=== PATIENT | male | born 1950 | race Caucasian/White ===

== ENCOUNTER 2017-03-21 04:33 | Inpatient (IN) | payer OTHER ==
[2017-03-21 05:24] LABS: ADD MAN DIFF? NO
[2017-03-21 05:31] LABS: BASOPHIL # 0.1 10^3/ul (0.0-0.1); BASOPHILS % 0.6 % (0.0-2.0); EOSINOPHILS # 0.1 10^3/ul (0.0-0.5); EOSINOPHILS % 1.8 % (0.0-7.0); HEMATOCRIT 36.8 % (42.0-52.0); HEMOGLOBIN 11.9 g/dl (14.0-18.0); LYMPHOCYTES # 1.4 10^3/ul (0.8-2.9); LYMPHOCYTES % 17.6 % (15.0-51.0); MEAN CORPUSCULAR HEMOGLOBIN 26.4 pg (29.0-33.0); MEAN CORPUSCULAR HGB CONC 32.3 g/dl (32.0-37.0); MEAN CORPUSCULAR VOLUME 81.6 fl (82.0-101.0); MEAN PLATELET VOLUME 9.8 fl (7.4-10.4); MONOCYTE # 0.5 10^3/ul (0.3-0.9); MONOCYTES % 6.2 % (0.0-11.0); NEUTROPHIL # 5.7 10^3/ul (1.6-7.5); NEUTROPHILS % 73.4 % (39.0-77.0); NUCLEATED RED BLOOD CELLS% 0.4 /100WBC (0.0-0.0); PLATELET COUNT 289 10^3/UL (140-415); RED BLOOD COUNT 4.51 10^6/ul (4.70-6.10); RED CELL DISTRIBUTION WIDTH 17.3 % (11.5-14.5)
[2017-03-21 05:31] LABS: WHITE BLOOD COUNT 7.7 10^3/ul (4.8-10.8)
[2017-03-21 05:57] LABS: ANION GAP 13 (8-16); BLOOD UREA NITROGEN 28 mg/dl (7-20); CARBON DIOXIDE 24 mmol/L (21-31); CHLORIDE 107 mmol/L (97-110); CREATININE 0.89 mg/dl (0.61-1.24); GLUCOSE 120 mg/dl (70-220); POTASSIUM 4.3 mmol/L (3.5-5.1); SODIUM 140 mmol/L (135-144)
[2017-03-21 06:05] LABS: B-TYPE NATRIURETIC PEPTIDE 7920 PG/ML (0-125)
[2017-03-21 06:10] LABS: TROPONIN-I < 0.012 ng/ml (0.00-0.12)
[2017-03-21] MEDS ORDERED: ONDANSETRON 4 MG INJ IV ×2 (07:00→08:30)
[2017-03-21] MEDS ORDERED: ACETAMINOPHEN 325 MG TAB PO (07:00)
[2017-03-21] MEDS: FUROSEMIDE 40 MG INJ IV (07:40)
[2017-03-21] MEDS ORDERED: MAGNESIUM HYDROXIDE 30ML CUP PO (08:30)
[2017-03-21] MEDS ORDERED: HYDROCODONE/APAP (5/325) TAB PO (08:30)
[2017-03-21] MEDS ORDERED: POTASSIUM CHLORIDE 20 MEQ POWDER FOR ORAL SOLN PO ×3 (08:30)
[2017-03-21] MEDS ORDERED: LORAZEPAM 0.5 MG TAB PO (08:30)
[2017-03-21] MEDS ORDERED: NA PHOSPHATE/BIPHOS 133 ML ENEMA PR (08:30)
[2017-03-21] MEDS ORDERED: ZOLPIDEM 5 MG TAB PO (08:30)
[2017-03-21] MEDS ORDERED: DOCUSATE SODIUM 100 MG CAP PO (08:30)
[2017-03-21] MEDS ORDERED: NACL 0.9% 3 ML SYG IV (08:30)
[2017-03-21 10:07] LABS: CREATINE KINASE 35 IU/L (23-200)
[2017-03-21 10:16] LABS: B-TYPE NATRIURETIC PEPTIDE 9260 PG/ML (0-125)
[2017-03-21 10:18] LABS: CK INDEX 6.7
[2017-03-21 10:19] LABS: TROPONIN-I < 0.012 ng/ml (0.00-0.12)
[2017-03-21 10:20] LABS: CK-MB 2.33 ng/ml (0.0-2.4)
[2017-03-21 11:05] LABS: ADD UMIC NO; UR ASCORBIC ACID NEGATIVE (NEGATIVE); UR BILIRUBIN (Dip) NEGATIVE (NEGATIVE); UR BLOOD (Dip) NEGATIVE (NEGATIVE); UR CLARITY CLEAR (CLEAR); UR COLOR COLORLESS (YELLOW); UR GLUCOSE (Dip) NEGATIVE (NEGATIVE); UR KETONES (Dip) NEGATIVE (NEGATIVE); UR LEUKOCYTE ESTERASE (Dip) NEGATIVE Leu/ul (NEGATIVE); UR NITRITE (Dip) NEGATIVE (NEGATIVE); UR SPECIFIC GRAVITY (Dip) 1.005 (1.003-1.030); UR TOTAL PROTEIN (Dip) NEGATIVE (NEGATIVE); UR UROBILINOGEN (Dip) NEGATIVE (NEGATIVE)
[2017-03-21 11:27] LABS: DIGOXIN 0.4 ng/ml (1.0-2.0)
[2017-03-21 11:41] LABS: AMPHETAMINE/METHAMPHETAMINE Negative (NEGATIVE); BARBITURATES Negative (NEGATIVE); BENZODIAZEPINES Negative (NEGATIVE); CANNABINOIDS Negative (NEGATIVE); COCAINE Negative (NEGATIVE); OPIATES Negative (NEGATIVE)
[2017-03-21] MEDS: FAMOTIDINE 20 MG TAB PO ×2 (11:41→21:26)
[2017-03-21] MEDS: FERROUS SULFATE (EC) 325 MG TAB PO (11:41)
[2017-03-21] MEDS: PANTOPRAZOLE (EC) 40 MG TAB PO (11:41)
[2017-03-21] MEDS: ENOXAPARIN 40 MG/0.4 ML SYG SC (11:43)
[2017-03-21 12:39] LABS: GAMMA GLUTAMYL TRANSPEPTIDASE 21 IU/L (0-50)
[2017-03-21] MEDS: SPIRONOLACTONE 25 MG TAB PO (13:47)
[2017-03-21] MEDS: DIGOXIN 0.125 MG TAB PO (13:48)
[2017-03-21] MEDS: SERTRALINE 50 MG TAB PO (13:48)
[2017-03-21] MEDS: ASPIRIN (EC) 325 MG TAB PO (13:48)
[2017-03-21] MEDS: FINASTERIDE 5 MG TAB PO (13:48)
[2017-03-21] MEDS: NICOTINE (21 MG/24 HR) PATCH TRANSDERM (13:49)
[2017-03-21] MEDS: VALSARTAN 80 MG TAB PO (13:50)
[2017-03-21] MEDS: ASCORBIC ACID 500 MG TAB PO (13:50)
[2017-03-21] MEDS: LEVALBUTEROL (NEB) 0.63 MG/3 ML AMP HHN ×2 (14:03→23:34)
[2017-03-21 14:43] LABS: CREATINE KINASE 33 IU/L (23-200)
[2017-03-21 14:55] LABS: CK INDEX 6.8
[2017-03-21 14:59] LABS: CK-MB 2.24 ng/ml (0.0-2.4); TROPONIN-I < 0.012 ng/ml (0.00-0.12)
[2017-03-21] MEDS: POTASSIUM CHLORIDE (SR) 20 MEQ TAB PO ×2 (15:00→21:27)
[2017-03-21] MEDS: SALMETEROL/FLUTICASONE 250/50 INHA INH ×2 (15:00→23:00)
[2017-03-21] MEDS: CLOPIDOGREL 75 MG TAB PO (15:00)
[2017-03-21] MEDS: DIGOXIN 500 MCG INJ IV (15:01)
[2017-03-21] MEDS: TIOTROPIUM 18 MCG CAPSULE INHA DEV INH (16:18)
[2017-03-21] MEDS: BUMETANIDE 1 MG INJ IV ×2 (16:18→21:27)
[2017-03-21] MEDS: HYDROCODONE/APAP (5/325) TAB PO ×2 (16:31→22:41)
[2017-03-21] MEDS: ATORVASTATIN 80 MG TAB PO (21:26)
[2017-03-21] MEDS: TAMSULOSIN (SR) 0.4 MG CAP PO (21:26)
[2017-03-22] MEDS: morphine 2 MG INJ IV (03:12)
[2017-03-22] MEDS: HYDROCODONE/APAP (5/325) TAB PO (06:25)
[2017-03-22] MEDS: BUMETANIDE 1 MG INJ IV (06:27)
[2017-03-22 09:12] LABS: ADD MAN DIFF? NO; BASOPHIL # 0.1 10^3/ul (0.0-0.1); BASOPHILS % 0.4 % (0.0-2.0); EOSINOPHILS # 0.2 10^3/ul (0.0-0.5); EOSINOPHILS % 1.8 % (0.0-7.0); HEMATOCRIT 45.4 % (42.0-52.0); HEMOGLOBIN 14.5 g/dl (14.0-18.0); LYMPHOCYTES # 1.8 10^3/ul (0.8-2.9); MEAN CORPUSCULAR HEMOGLOBIN 25.7 pg (29.0-33.0); MEAN CORPUSCULAR HGB CONC 31.9 g/dl (32.0-37.0); MEAN CORPUSCULAR VOLUME 80.5 fl (82.0-101.0); MEAN PLATELET VOLUME 9.3 fl (7.4-10.4); MONOCYTE # 0.7 10^3/ul (0.3-0.9); MONOCYTES % 6.3 % (0.0-11.0); NEUTROPHIL # 8.4 10^3/ul (1.6-7.5); NEUTROPHILS % 75.2 % (39.0-77.0); PLATELET COUNT 393 10^3/UL (140-415); RED BLOOD COUNT 5.64 10^6/ul (4.70-6.10); RED CELL DISTRIBUTION WIDTH 17.3 % (11.5-14.5)
[2017-03-22 09:12] LABS: WHITE BLOOD COUNT 11.1 10^3/ul (4.8-10.8)
[2017-03-22] MEDS: LEVALBUTEROL (NEB) 0.63 MG/3 ML AMP HHN (09:14)
[2017-03-22 09:44] LABS: ALANINE AMINOTRANSFERASE 35 IU/L (13-69); ALBUMIN/GLOBULIN RATIO 1.31; ALKALINE PHOSPHATASE 64 IU/L (42-121); ANION GAP 18 (8-16); ASPARTATE AMINO TRANSFERASE 27 IU/L (15-46); BILIRUBIN,INDIRECT 0.6 mg/dl (0-1.1); BILIRUBIN,TOTAL 0.6 mg/dl (0.2-1.3); BLOOD UREA NITROGEN 28 mg/dl (7-20); CALCIUM 9.9 mg/dl (8.4-10.2); CARBON DIOXIDE 27 mmol/L (21-31); CHLORIDE 99 mmol/L (97-110); CHOL/HDL RATIO 4.8 RATIO; CHOLESTEROL 249 mg/dl (100-200); CREATININE 0.97 mg/dl (0.61-1.24); GLUCOSE 137 mg/dl (70-220); HDL CHOLESTEROL 51 mg/dl (30-78); LDL CHOLESTEROL,CALCULATED 176 mg/dl; POTASSIUM 4.4 mmol/L (3.5-5.1); SODIUM 140 mmol/L (135-144); TOTAL PROTEIN 8.8 g/dl (6.1-8.1); TRIGLYCERIDES 111 mg/dl (0-149)
[2017-03-22] MEDS: NICOTINE (21 MG/24 HR) PATCH TRANSDERM (10:03)
[2017-03-22] MEDS: FERROUS SULFATE (EC) 325 MG TAB PO (10:03)
[2017-03-22] MEDS: ASCORBIC ACID 500 MG TAB PO (10:03)
[2017-03-22] MEDS: FAMOTIDINE 20 MG TAB PO (10:03)
[2017-03-22] MEDS: CLOPIDOGREL 75 MG TAB PO (10:04)
[2017-03-22] MEDS: FINASTERIDE 5 MG TAB PO (10:04)
[2017-03-22] MEDS: ASPIRIN (EC) 325 MG TAB PO (10:04)
[2017-03-22] MEDS: SALMETEROL/FLUTICASONE 250/50 INHA INH (10:05)
[2017-03-22] MEDS: SERTRALINE 50 MG TAB PO (10:05)
[2017-03-22] MEDS: PANTOPRAZOLE (EC) 40 MG TAB PO (10:05)
[2017-03-22] MEDS: TIOTROPIUM 18 MCG CAPSULE INHA DEV INH (10:05)
[2017-03-22] MEDS: VALSARTAN 80 MG TAB PO (10:05)
[2017-03-22] MEDS: ENOXAPARIN 40 MG/0.4 ML SYG SC (10:05)
[2017-03-22] MEDS: SPIRONOLACTONE 25 MG TAB PO (10:05)
[2017-03-22] MEDS: POTASSIUM CHLORIDE (SR) 20 MEQ TAB PO (10:09)
[2017-03-22 10:39] LABS: THYROID STIMULATING HORMONE 0.505 MIU/L (0.465-4.680)
== END 2017-03-22 11:50 | disposition left against medical advice (07) | DRG 291 ==
LOC: E/R 04:33 → MS3 06:54 → TEL 20:29
PROVIDERS: Hospitalist
DX: I11.0 Hypertensive heart disease with heart failure (principal); J96.01 Acute respiratory failure with hypoxia; J44.9 Chronic obstructive pulmonary disease, unspecified; Z95.1 Presence of aortocoronary bypass graft; I50.23 Acute on chronic systolic (congestive) heart failure; I25.10 Atherosclerotic heart disease of native coronary artery without angina pectoris; F41.9 Anxiety disorder, unspecified; N40.1 Benign prostatic hyperplasia with lower urinary tract symptoms; R33.8 Other retention of urine; F41.1 Generalized anxiety disorder; F10.20 Alcohol dependence, uncomplicated; E78.5 Hyperlipidemia, unspecified; F17.210 Nicotine dependence, cigarettes, uncomplicated; Z96.641 Presence of right artificial hip joint; I25.2 Old myocardial infarction; Z79.82 Long term (current) use of aspirin; Z91.14 Patient's other noncompliance with medication regimen
CPT/HCPCS: 36415; 71045; 80048; 80053; 80061; 80162; 80307; 81003; 82550; 82553; 82977; 83735; 83880; 84443; 84484; 85025; 93005; 93306; 94640; 94664; 94760; 96374; 99291-25

== ENCOUNTER 2017-05-27 15:16 | Inpatient (IN) | payer OTHER ==
[2017-05-27 15:48] LABS: ADD MAN DIFF? NO
[2017-05-27] MEDS: ALBUTEROL 0.5% (NEB) 2.5 MG/0.5 ML AMP INH (15:48)
[2017-05-27] MEDS: IPRATROPIUM (NEB) 0.5 MG/2.5 ML AMP INH (15:48)
[2017-05-27 15:50] LABS: BASOPHIL # 0.1 10^3/ul (0.0-0.1); BASOPHILS % 1.5 % (0.0-2.0); EOSINOPHILS # 0.3 10^3/ul (0.0-0.5); EOSINOPHILS % 3.6 % (0.0-7.0); HEMATOCRIT 37.8 % (42.0-52.0); LYMPHOCYTES # 1.8 10^3/ul (0.8-2.9); LYMPHOCYTES % 19.8 % (15.0-51.0); MEAN CORPUSCULAR HEMOGLOBIN 25.1 pg (29.0-33.0); MEAN CORPUSCULAR HGB CONC 31.7 g/dl (32.0-37.0); MEAN CORPUSCULAR VOLUME 78.9 fl (82.0-101.0); MEAN PLATELET VOLUME 9.2 fl (7.4-10.4); MONOCYTE # 0.6 10^3/ul (0.3-0.9); MONOCYTES % 6.5 % (0.0-11.0); NEUTROPHIL # 6.1 10^3/ul (1.6-7.5); NEUTROPHILS % 68.3 % (39.0-77.0); PLATELET COUNT 291 10^3/UL (140-415); RED BLOOD COUNT 4.79 10^6/ul (4.70-6.10); RED CELL DISTRIBUTION WIDTH 16.1 % (11.5-14.5)
[2017-05-27] MEDS: FUROSEMIDE 40 MG INJ IV (15:51)
[2017-05-27] MEDS: METHYLPREDNISOLONE 125 MG INJ IV ×2 (15:51→17:59)
[2017-05-27] MEDS: ASPIRIN 81 MG TAB PO (15:51)
[2017-05-27 16:08] LABS: ALANINE AMINOTRANSFERASE 27 IU/L (13-69); ALBUMIN 4.2 g/dl (3.3-4.9); ALKALINE PHOSPHATASE 60 IU/L (42-121); ANION GAP 18 (8-16); ASPARTATE AMINO TRANSFERASE 25 IU/L (15-46); BILIRUBIN,INDIRECT 0.3 mg/dl (0-1.1); BILIRUBIN,TOTAL 0.3 mg/dl (0.2-1.3); BLOOD UREA NITROGEN 22 mg/dl (7-20); CALCIUM 9.1 mg/dl (8.4-10.2); CARBON DIOXIDE 23 mmol/L (21-31); CHLORIDE 104 mmol/L (97-110); CREATININE 0.89 mg/dl (0.61-1.24); GLUCOSE 93 mg/dl (70-220); LIPASE 63 U/L (23-300); POTASSIUM 4.2 mmol/L (3.5-5.1); SODIUM 141 mmol/L (135-144)
[2017-05-27 16:21] LABS: B-TYPE NATRIURETIC PEPTIDE 15700 PG/ML (0-125); TROPONIN-I < 0.012 ng/ml (0.00-0.12)
[2017-05-27] MEDS ORDERED: ONDANSETRON 4 MG INJ IV (17:30)
[2017-05-27] MEDS ORDERED: BISACODYL (EC) 5 MG TAB PO (17:30)
[2017-05-27] MEDS ORDERED: traMADol 50 MG TAB PO (17:30)
[2017-05-27] MEDS ORDERED: NICOTINE POLACRILEX 2 MG GUM BUCCAL (17:30)
[2017-05-27] MEDS ORDERED: ALBUTEROL/IPRATROPIUM (NEB) 3 ML AMP NEB (17:30)
[2017-05-27] MEDS ORDERED: DOCUSATE SODIUM 100 MG CAP PO (17:30)
[2017-05-27] MEDS ORDERED: HYDROCODONE/APAP (5/325) TAB PO (17:30)
[2017-05-27] MEDS: CEFTRIAXONE 1 GM/50 ML (PMX) 50 ML IVPB (18:00)
[2017-05-27] MEDS: MAGNESIUM SULFATE 2 GM/50 ML 50 ML IVPB (18:00)
[2017-05-27] MEDS: AZITHROMYCIN 500MG/NS (PMX) 250 ML IV (18:44)
[2017-05-27] MEDS: DIGOXIN 0.125 MG TAB PO (18:57)
[2017-05-27] MEDS: FUROSEMIDE 250 MG in DEXTROSE 5% 225 ML IV ×2 (18:57→19:45)
[2017-05-27] MEDS ORDERED: FUROSEMIDE 250 MG in DEXTROSE 5% 225 ML IV (19:00)
[2017-05-27] MEDS: LORAZEPAM 1 MG TAB PO (20:06)
[2017-05-27] MEDS: ALBUTEROL/IPRATROPIUM (NEB) 3 ML AMP NEB (21:30)
[2017-05-27 22:43] LABS: CREATINE KINASE 48 IU/L (23-200)
[2017-05-27 22:55] LABS: CK INDEX 5.1
[2017-05-27] MEDS: ATORVASTATIN 40 MG TAB PO (23:00)
[2017-05-27 23:01] LABS: CK-MB 2.44 ng/ml (0.0-2.4); TROPONIN-I < 0.012 ng/ml (0.00-0.12)
[2017-05-27] MEDS: MONTELUKAST 10 MG TAB PO (23:40)
[2017-05-27] MEDS: SALMETEROL/FLUTICASONE 500/50 INHA INH (23:40)
[2017-05-27] MEDS: FERROUS SULFATE (EC) 325 MG TAB PO (23:40)
[2017-05-27] MEDS: FAMOTIDINE 20 MG TAB PO (23:40)
[2017-05-27] MEDS: POTASSIUM CHLORIDE (SR) 20 MEQ TAB PO (23:40)
[2017-05-28] MEDS: METHYLPREDNISOLONE 125 MG INJ IV ×3 (00:39→12:32)
[2017-05-28] MEDS: ALBUTEROL/IPRATROPIUM (NEB) 3 ML AMP NEB ×7 (00:53→21:00)
[2017-05-28 03:57] LABS: ADD MAN DIFF? NO
[2017-05-28 04:11] LABS: HEMOGLOBIN A1C 6.1 % (0-5.9)
[2017-05-28 04:17] LABS: WHITE BLOOD COUNT 6.9 10^3/ul (4.8-10.8)
[2017-05-28 04:17] LABS: ABNORMAL IP MESSAGE 1; BASOPHILS % 0.1 % (0.0-2.0); HEMATOCRIT 38.4 % (42.0-52.0); HEMOGLOBIN 12.5 g/dl (14.0-18.0); LYMPHOCYTES # 0.6 10^3/ul (0.8-2.9); MEAN CORPUSCULAR HEMOGLOBIN 25.5 pg (29.0-33.0); MEAN CORPUSCULAR HGB CONC 32.6 g/dl (32.0-37.0); MEAN CORPUSCULAR VOLUME 78.2 fl (82.0-101.0); MEAN PLATELET VOLUME 9.3 fl (7.4-10.4); MONOCYTE # 0.1 10^3/ul (0.3-0.9); MONOCYTES % 0.7 % (0.0-11.0); NEUTROPHIL # 6.2 10^3/ul (1.6-7.5); NEUTROPHILS % 90.6 % (39.0-77.0); PLATELET COUNT 303 10^3/UL (140-415); POSITIVE DIFF @See below; RED BLOOD COUNT 4.91 10^6/ul (4.70-6.10); RED CELL DISTRIBUTION WIDTH 15.7 % (11.5-14.5)
[2017-05-28 04:20] LABS: CREATINE KINASE 42 IU/L (23-200)
[2017-05-28 04:22] LABS: ALANINE AMINOTRANSFERASE 37 IU/L (13-69); ALBUMIN 4.6 g/dl (3.3-4.9); ALBUMIN/GLOBULIN RATIO 1.31; ALKALINE PHOSPHATASE 74 IU/L (42-121); ANION GAP 19 (8-16); ASPARTATE AMINO TRANSFERASE 33 IU/L (15-46); BILIRUBIN,INDIRECT 0.4 mg/dl (0-1.1); BILIRUBIN,TOTAL 0.4 mg/dl (0.2-1.3); BLOOD UREA NITROGEN 26 mg/dl (7-20); CALCIUM 9.2 mg/dl (8.4-10.2); CARBON DIOXIDE 28 mmol/L (21-31); CHLORIDE 98 mmol/L (97-110); CHOL/HDL RATIO 4.4 RATIO; CHOLESTEROL 212 mg/dl (100-200); CREATININE 0.89 mg/dl (0.61-1.24); GLUCOSE 188 mg/dl (70-220); HDL CHOLESTEROL 48 mg/dl (30-78); LDL CHOLESTEROL,CALCULATED 154 mg/dl; POTASSIUM 3.5 mmol/L (3.5-5.1); SODIUM 141 mmol/L (135-144); TOTAL PROTEIN 8.1 g/dl (6.1-8.1); TRIGLYCERIDES 48 mg/dl (0-149)
[2017-05-28 04:26] LABS: DIGOXIN 0.6 ng/ml (1.0-2.0)
[2017-05-28 04:30] LABS: B-TYPE NATRIURETIC PEPTIDE 21700 PG/ML (0-125)
[2017-05-28 04:33] LABS: CK INDEX 5.3; TROPONIN-I 0.019 ng/ml (0.00-0.12)
[2017-05-28 04:38] LABS: CK-MB 2.21 ng/ml (0.0-2.4)
[2017-05-28 04:52] LABS: THYROID STIMULATING HORMONE 0.232 MIU/L (0.465-4.680)
[2017-05-28] MEDS: NICOTINE (21 MG/24 HR) PATCH TRANSDERM (09:00)
[2017-05-28] MEDS ORDERED: NON-FORMULARY/PATIENT OWN MED (Fluticasone/Vilanterol (Breo Ellipta 200-25 Mcg INH) 1 PUFF INHALATION (09:00)
[2017-05-28] MEDS: FERROUS SULFATE (EC) 325 MG TAB PO ×2 (09:16→20:54)
[2017-05-28] MEDS: TAMSULOSIN (SR) 0.4 MG CAP PO (09:17)
[2017-05-28] MEDS: SERTRALINE 50 MG TAB PO (09:17)
[2017-05-28] MEDS: CLOPIDOGREL 75 MG TAB PO (09:17)
[2017-05-28] MEDS: FINASTERIDE 5 MG TAB PO (09:17)
[2017-05-28] MEDS: POTASSIUM CHLORIDE (SR) 20 MEQ TAB PO ×2 (09:17→20:53)
[2017-05-28] MEDS: FAMOTIDINE 20 MG TAB PO ×2 (09:18→20:54)
[2017-05-28] MEDS: ASPIRIN (EC) 81 MG TAB PO (09:18)
[2017-05-28] MEDS: SPIRONOLACTONE 25 MG TAB PO (09:18)
[2017-05-28] MEDS: LISINOPRIL 5 MG TAB PO (09:20)
[2017-05-28 09:47] LABS: ADD UMIC NO; UR ASCORBIC ACID NEGATIVE (NEGATIVE); UR BILIRUBIN (Dip) NEGATIVE (NEGATIVE); UR BLOOD (Dip) NEGATIVE (NEGATIVE); UR CLARITY CLEAR (CLEAR); UR COLOR STRAW (YELLOW); UR GLUCOSE (Dip) NEGATIVE (NEGATIVE); UR KETONES (Dip) NEGATIVE (NEGATIVE); UR LEUKOCYTE ESTERASE (Dip) NEGATIVE Leu/ul (NEGATIVE); UR NITRITE (Dip) NEGATIVE (NEGATIVE); UR SPECIFIC GRAVITY (Dip) 1.006 (1.003-1.030); UR TOTAL PROTEIN (Dip) NEGATIVE (NEGATIVE); UR UROBILINOGEN (Dip) NEGATIVE (NEGATIVE)
[2017-05-28 10:14] LABS: AMPHETAMINE/METHAMPHETAMINE Negative (NEGATIVE); BARBITURATES Negative (NEGATIVE); BENZODIAZEPINES Negative (NEGATIVE); CANNABINOIDS Negative (NEGATIVE); COCAINE Negative (NEGATIVE); OPIATES Negative (NEGATIVE)
[2017-05-28] MEDS: SALMETEROL/FLUTICASONE 500/50 INHA INH ×2 (10:45→20:54)
[2017-05-28] MEDS: DIGOXIN 0.125 MG TAB PO (12:32)
[2017-05-28] MEDS: CEFTRIAXONE 1 GM/50 ML (PMX) 50 ML IVPB (17:15)
[2017-05-28] MEDS: FUROSEMIDE 40 MG INJ IV (17:23)
[2017-05-28] MEDS: ACETAMINOPHEN 325 MG TAB PO (17:23)
[2017-05-28] MEDS: AZITHROMYCIN 500MG/NS (PMX) 250 ML IV (18:08)
[2017-05-28] MEDS: ATORVASTATIN 40 MG TAB PO (20:53)
[2017-05-28] MEDS: MONTELUKAST 10 MG TAB PO (20:54)
[2017-05-29] MEDS: morphine 2 MG INJ IV (00:31)
[2017-05-29] MEDS: ALBUTEROL/IPRATROPIUM (NEB) 3 ML AMP NEB ×3 (01:46→08:09)
[2017-05-29] MEDS: FUROSEMIDE 40 MG INJ IV (06:11)
[2017-05-29 07:43] LABS: ANION GAP 16 (8-16); BLOOD UREA NITROGEN 38 mg/dl (7-20); CALCIUM 9.2 mg/dl (8.4-10.2); CARBON DIOXIDE 29 mmol/L (21-31); CHLORIDE 95 mmol/L (97-110); CREATININE 0.98 mg/dl (0.61-1.24); GLUCOSE 131 mg/dl (70-220); POTASSIUM 4.2 mmol/L (3.5-5.1); SODIUM 136 mmol/L (135-144)
[2017-05-29] MEDS: SALMETEROL/FLUTICASONE 500/50 INHA INH (08:45)
[2017-05-29] MEDS: SERTRALINE 50 MG TAB PO ×2 (08:46→08:58)
[2017-05-29] MEDS: TAMSULOSIN (SR) 0.4 MG CAP PO (08:47)
[2017-05-29] MEDS: ASPIRIN (EC) 81 MG TAB PO ×2 (08:47→08:57)
[2017-05-29] MEDS: POTASSIUM CHLORIDE (SR) 20 MEQ TAB PO ×2 (08:47→08:57)
[2017-05-29] MEDS: CLOPIDOGREL 75 MG TAB PO (08:47)
[2017-05-29] MEDS: FERROUS SULFATE (EC) 325 MG TAB PO ×2 (08:47→08:57)
[2017-05-29] MEDS: LISINOPRIL 5 MG TAB PO (08:48)
[2017-05-29] MEDS: FINASTERIDE 5 MG TAB PO ×2 (08:48→08:57)
[2017-05-29] MEDS: SPIRONOLACTONE 25 MG TAB PO ×2 (08:48→08:56)
[2017-05-29] MEDS: predniSONE 20 MG TAB PO (08:48)
[2017-05-29] MEDS: FAMOTIDINE 20 MG TAB PO ×2 (08:48→08:57)
[2017-05-29] MEDS: NICOTINE (21 MG/24 HR) PATCH TRANSDERM (08:58)
== END 2017-05-29 11:00 | disposition home or self-care (01) | DRG 291 ==
LOC: E/R 15:16 → TEL 16:51
DX: I50.23 Acute on chronic systolic (congestive) heart failure (principal); J96.21 Acute and chronic respiratory failure with hypoxia; J44.1 Chronic obstructive pulmonary disease with (acute) exacerbation; I25.810 Atherosclerosis of coronary artery bypass graft(s) without angina pectoris; I11.0 Hypertensive heart disease with heart failure; F17.210 Nicotine dependence, cigarettes, uncomplicated; E86.0 Dehydration; E78.5 Hyperlipidemia, unspecified; K21.9 Gastro-esophageal reflux disease without esophagitis; F32.9 Major depressive disorder, single episode, unspecified; Z96.641 Presence of right artificial hip joint; F41.9 Anxiety disorder, unspecified; F41.1 Generalized anxiety disorder; N40.1 Benign prostatic hyperplasia with lower urinary tract symptoms; R33.8 Other retention of urine; I25.2 Old myocardial infarction; Z91.19 Patient's noncompliance with other medical treatment and regimen; Z79.02 Long term (current) use of antithrombotics/antiplatelets; Z79.82 Long term (current) use of aspirin; Z95.1 Presence of aortocoronary bypass graft
CPT/HCPCS: 36415; 71045; 80048; 80053; 80061; 80162; 80307; 81003; 82550; 82553; 83036; 83690; 83735; 83880; 84443; 84484; 85025; 94060; 94640; 94644; 94664; 96365; 96366; 96375; 96376; 99291-25

== ENCOUNTER 2017-10-24 17:31 | Emergency (ER) | payer OTHER ==
[2017-10-24 18:15] LABS: ADD MAN DIFF? NO
[2017-10-24 18:19] LABS: WHITE BLOOD COUNT 10.4 10^3/ul (4.8-10.8)
[2017-10-24 18:19] LABS: BASOPHIL # 0.1 10^3/ul (0.0-0.1); BASOPHILS % 0.5 % (0.0-2.0); EOSINOPHILS # 0.2 10^3/ul (0.0-0.5); EOSINOPHILS % 1.7 % (0.0-7.0); HEMATOCRIT 37.9 % (42.0-52.0); HEMOGLOBIN 12.1 g/dl (14.0-18.0); LYMPHOCYTES # 1.4 10^3/ul (0.8-2.9); LYMPHOCYTES % 13.9 % (15.0-51.0); MEAN CORPUSCULAR HEMOGLOBIN 25.6 pg (29.0-33.0); MEAN CORPUSCULAR HGB CONC 31.9 g/dl (32.0-37.0); MEAN CORPUSCULAR VOLUME 80.3 fl (82.0-101.0); MEAN PLATELET VOLUME 9.2 fl (7.4-10.4); MONOCYTE # 0.6 10^3/ul (0.3-0.9); NEUTROPHILS % 77.3 % (39.0-77.0); PLATELET COUNT 287 10^3/UL (140-415); RED BLOOD COUNT 4.72 10^6/ul (4.70-6.10); RED CELL DISTRIBUTION WIDTH 16.2 % (11.5-14.5)
[2017-10-24 18:36] LABS: ANION GAP 12 (8-16); BLOOD UREA NITROGEN 26 mg/dl (7-20); CALCIUM 8.9 mg/dl (8.4-10.2); CARBON DIOXIDE 24 mmol/L (21-31); CHLORIDE 103 mmol/L (97-110); GLUCOSE 131 mg/dl (70-220); POTASSIUM 4.3 mmol/L (3.5-5.1); SODIUM 135 mmol/L (135-144)
[2017-10-24] MEDS: ASPIRIN 325 MG TAB PO (18:42)
[2017-10-24 18:48] LABS: B-TYPE NATRIURETIC PEPTIDE 13900 PG/ML (0-125); TROPONIN-I < 0.012 ng/ml (0.000-0.120)
[2017-10-24] MEDS: FUROSEMIDE 40 MG INJ IV (19:31)
[2017-10-24] MEDS: IPRATROPIUM (NEB) 0.5 MG/2.5 ML AMP HHN (21:34)
[2017-10-24] MEDS: ALBUTEROL 0.083% (NEB) 2.5 MG/3 ML AMP HHN (21:34)
== END 2017-10-24 22:10 | disposition short-term general hospital (02) ==
LOC: E/R 17:31
DX: I50.9 Heart failure, unspecified (principal); D50.9 Iron deficiency anemia, unspecified; I10 Essential (primary) hypertension; I25.2 Old myocardial infarction; F17.210 Nicotine dependence, cigarettes, uncomplicated; Z79.01 Long term (current) use of anticoagulants; Z79.82 Long term (current) use of aspirin; Z95.1 Presence of aortocoronary bypass graft
CPT/HCPCS: 71045; 80048; 83880; 84484; 85025; 93005; 94664; 96374; 99285-25

== ENCOUNTER 2017-11-04 20:23 | Emergency (ER) | payer OTHER ==
[2017-11-04 20:44] LABS: ADD MAN DIFF? NO
[2017-11-04 20:46] LABS: WHITE BLOOD COUNT 10.9 10^3/ul (4.8-10.8)
[2017-11-04 20:46] LABS: BASOPHIL # 0.1 10^3/ul (0.0-0.1); BASOPHILS % 0.6 % (0.0-2.0); EOSINOPHILS # 0.2 10^3/ul (0.0-0.5); HEMATOCRIT 40.2 % (42.0-52.0); HEMOGLOBIN 12.4 g/dl (14.0-18.0); LYMPHOCYTES # 1.6 10^3/ul (0.8-2.9); LYMPHOCYTES % 14.8 % (15.0-51.0); MEAN CORPUSCULAR HEMOGLOBIN 25.3 pg (29.0-33.0); MEAN CORPUSCULAR HGB CONC 30.8 g/dl (32.0-37.0); MEAN CORPUSCULAR VOLUME 81.9 fl (82.0-101.0); MEAN PLATELET VOLUME 9.2 fl (7.4-10.4); MONOCYTE # 0.7 10^3/ul (0.3-0.9); MONOCYTES % 6.4 % (0.0-11.0); NEUTROPHIL # 8.2 10^3/ul (1.6-7.5); NEUTROPHILS % 75.6 % (39.0-77.0); PLATELET COUNT 313 10^3/UL (140-415); RED BLOOD COUNT 4.91 10^6/ul (4.70-6.10); RED CELL DISTRIBUTION WIDTH 16.3 % (11.5-14.5)
[2017-11-04 21:13] LABS: ANION GAP 11 (8-16); BLOOD UREA NITROGEN 28 mg/dl (7-20); CALCIUM 9.1 mg/dl (8.4-10.2); CARBON DIOXIDE 32 mmol/L (21-31); CHLORIDE 101 mmol/L (97-110); CREATININE 0.97 mg/dl (0.61-1.24); GLUCOSE 131 mg/dl (70-220); POTASSIUM 4.5 mmol/L (3.5-5.1); SODIUM 139 mmol/L (135-144)
[2017-11-04 21:25] LABS: B-TYPE NATRIURETIC PEPTIDE 14500 PG/ML (0-125); TROPONIN-I < 0.012 ng/ml (0.000-0.120)
[2017-11-04] MEDS ORDERED: FUROSEMIDE 40 MG INJ (22:34)
[2017-11-04] MEDS: FUROSEMIDE 40 MG INJ IV (22:43)
[2017-11-04 23:34] LABS: URINE BLOOD (Dip) POC Trace-intact (NEGATIVE); URINE GLUCOSE (Dip) POC Negative (NEGATIVE); URINE KETONES (Dip) POC Negative (NEGATIVE); URINE LEUKOCYTE EST (Dip) POC 2+ (NEGATIVE); URINE NITRITE (Dip) POC Negative (NEGATIVE); URINE TOTAL PROTEIN POC Negative (NEGATIVE)
[2017-11-04 23:34] LABS: URINE PH (Dip) POC 5.5 (5.0-8.5)
[2017-11-04 23:49] LABS: LIPASE 94 U/L (23-300)
[2017-11-04 23:49] LABS: ALANINE AMINOTRANSFERASE 23 IU/L (13-69); ALBUMIN 3.7 g/dl (3.3-4.9); ALKALINE PHOSPHATASE 64 IU/L (42-121); ASPARTATE AMINO TRANSFERASE 26 IU/L (15-46); BILIRUBIN,INDIRECT 0.3 mg/dl (0-1.1); BILIRUBIN,TOTAL 0.3 mg/dl (0.2-1.3); TOTAL PROTEIN 7.3 g/dl (6.1-8.1)
== END 2017-11-05 02:17 | disposition short-term general hospital (02) ==
LOC: E/R 11-05 02:17
DX: I50.9 Heart failure, unspecified (principal); E86.0 Dehydration; R10.9 Unspecified abdominal pain; I10 Essential (primary) hypertension; I25.2 Old myocardial infarction; F17.210 Nicotine dependence, cigarettes, uncomplicated; Z79.82 Long term (current) use of aspirin; Z95.1 Presence of aortocoronary bypass graft
CPT/HCPCS: 36415; 71045; 74176; 80048; 80076; 81003; 83690; 83880; 84484; 85025; 93005; 96374; 99285-25

== ENCOUNTER 2017-11-27 13:29 | Emergency (ER) | payer OTHER ==
[2017-11-27 14:06] LABS: ADD MAN DIFF? NO
[2017-11-27 14:09] LABS: BASOPHILS % 0.4 % (0.0-2.0); EOSINOPHILS # 0.2 10^3/ul (0.0-0.5); HEMATOCRIT 37.6 % (42.0-52.0); HEMOGLOBIN 11.7 g/dl (14.0-18.0); LYMPHOCYTES # 1.3 10^3/ul (0.8-2.9); LYMPHOCYTES % 11.9 % (15.0-51.0); MEAN CORPUSCULAR HEMOGLOBIN 25.4 pg (29.0-33.0); MEAN CORPUSCULAR HGB CONC 31.1 g/dl (32.0-37.0); MEAN CORPUSCULAR VOLUME 81.6 fl (82.0-101.0); MEAN PLATELET VOLUME 9.4 fl (7.4-10.4); MONOCYTE # 0.9 10^3/ul (0.3-0.9); MONOCYTES % 7.9 % (0.0-11.0); NEUTROPHIL # 8.7 10^3/ul (1.6-7.5); NEUTROPHILS % 77.3 % (39.0-77.0); PLATELET COUNT 250 10^3/UL (140-415); RED BLOOD COUNT 4.61 10^6/ul (4.70-6.10); RED CELL DISTRIBUTION WIDTH 17.7 % (11.5-14.5)
[2017-11-27 14:09] LABS: WHITE BLOOD COUNT 11.3 10^3/ul (4.8-10.8)
[2017-11-27 14:21] LABS: ALANINE AMINOTRANSFERASE 170 IU/L (13-69); ALBUMIN 3.8 g/dl (3.3-4.9); ALBUMIN/GLOBULIN RATIO 1.22; ALKALINE PHOSPHATASE 107 IU/L (42-121); ANION GAP 15 (8-16); ASPARTATE AMINO TRANSFERASE 94 IU/L (15-46); BILIRUBIN,INDIRECT 0.9 mg/dl (0-1.1); BILIRUBIN,TOTAL 0.9 mg/dl (0.2-1.3); BLOOD UREA NITROGEN 27 mg/dl (7-20); CALCIUM 8.7 mg/dl (8.4-10.2); CARBON DIOXIDE 27 mmol/L (21-31); CHLORIDE 97 mmol/L (97-110); CREATININE 1.04 mg/dl (0.61-1.24); GLUCOSE 118 mg/dl (70-220); POTASSIUM 3.6 mmol/L (3.5-5.1); SODIUM 135 mmol/L (135-144); TOTAL PROTEIN 6.9 g/dl (6.1-8.1)
[2017-11-27 14:29] LABS: INR 1.58; PROTIME 19.2 Sec (11.9-14.9); PT RATIO 1.5
[2017-11-27 14:30] LABS: PARTIAL THROMBOPLASTIN TIME 42.7 Sec (23.0-35.0)
[2017-11-27 14:32] LABS: B-TYPE NATRIURETIC PEPTIDE 15500 PG/ML (0-125); TROPONIN-I 0.012 ng/ml (0.000-0.120)
[2017-11-27 14:48] LABS: ADD UMIC YES; UR ASCORBIC ACID NEGATIVE (NEGATIVE); UR BILIRUBIN (Dip) NEGATIVE (NEGATIVE); UR BLOOD (Dip) NEGATIVE (NEGATIVE); UR CLARITY SLIGHTLY CLOUDY (CLEAR); UR COLOR YELLOW (YELLOW); UR GLUCOSE (Dip) NEGATIVE (NEGATIVE); UR HYALINE CAST FEW /HPF (NONE SEEN); UR KETONES (Dip) NEGATIVE (NEGATIVE); UR LEUKOCYTE ESTERASE (Dip) 3+ Leu/ul (NEGATIVE); UR NITRITE (Dip) NEGATIVE (NEGATIVE); UR RBC 9 /HPF (0-5); UR SPECIFIC GRAVITY (Dip) 1.009 (1.003-1.030); UR SQUAMOUS EPITHELIAL CELL FEW /HPF (FEW); UR TOTAL PROTEIN (Dip) NEGATIVE (NEGATIVE); UR UROBILINOGEN (Dip) 2+ mg/dL (NEGATIVE); UR WBC 67 /HPF (0-5)
[2017-11-27] MEDS: SOD CHLORIDE 0.9% 1,000 ML IV (15:15)
[2017-11-27] MEDS: LEVALBUTEROL (NEB) 1.25 MG/0.5 ML AMP INH (15:15)
[2017-11-27] MEDS: ALBUTEROL 0.5% (NEB) 2.5 MG/0.5 ML AMP INH (15:40)
[2017-11-27] MEDS ORDERED: ACETAMINOPHEN 325 MG TAB PO (17:30)
[2017-11-27] MEDS ORDERED: ONDANSETRON 4 MG INJ IV (17:30)
[2017-11-27] MEDS: LIDOCAINE/MYLANTA 40 ML BTL PO (21:21)
[2017-11-27] MEDS: BELLADONNA/PHENOBARBITAL TAB PO (21:21)
[2017-11-27] MEDS: FAMOTIDINE 20 MG TAB PO (21:21)
== END 2017-11-27 22:02 | disposition short-term general hospital (02) ==
LOC: E/R 22:02
DX: R55 Syncope and collapse (principal); I11.0 Hypertensive heart disease with heart failure; I50.9 Heart failure, unspecified; I25.2 Old myocardial infarction; Z79.01 Long term (current) use of anticoagulants; Z79.82 Long term (current) use of aspirin; Z87.891 Personal history of nicotine dependence; Z95.1 Presence of aortocoronary bypass graft
CPT/HCPCS: 70450; 71045; 80053; 81001; 83880; 84484; 85025; 85610; 85730; 93005; 94644; 99291-25

== ENCOUNTER 2017-12-23 22:35 | Emergency (ER) | payer OTHER ==
[2017-12-23] MEDS: IPRATROPIUM (NEB) 0.5 MG/2.5 ML AMP NEB (22:48)
[2017-12-23] MEDS: ALBUTEROL 0.083% (NEB) 2.5 MG/3 ML AMP NEB (22:48)
[2017-12-23 22:57] LABS: ADD MAN DIFF? NO
[2017-12-23 23:02] LABS: BASOPHIL # 0.1 10^3/ul (0.0-0.1); BASOPHILS % 0.7 % (0.0-2.0); EOSINOPHILS # 0.1 10^3/ul (0.0-0.5); EOSINOPHILS % 1.1 % (0.0-7.0); HEMATOCRIT 36.2 % (42.0-52.0); HEMOGLOBIN 11.4 g/dl (14.0-18.0); LYMPHOCYTES # 1.7 10^3/ul (0.8-2.9); LYMPHOCYTES % 13.8 % (15.0-51.0); MEAN CORPUSCULAR HEMOGLOBIN 24.8 pg (29.0-33.0); MEAN CORPUSCULAR HGB CONC 31.5 g/dl (32.0-37.0); MEAN CORPUSCULAR VOLUME 78.7 fl (82.0-101.0); MEAN PLATELET VOLUME 9.2 fl (7.4-10.4); MONOCYTE # 0.9 10^3/ul (0.3-0.9); MONOCYTES % 7.2 % (0.0-11.0); NEUTROPHIL # 9.4 10^3/ul (1.6-7.5); NEUTROPHILS % 76.5 % (39.0-77.0); PLATELET COUNT 370 10^3/UL (140-415); RED CELL DISTRIBUTION WIDTH 17.2 % (11.5-14.5)
[2017-12-23 23:02] LABS: WHITE BLOOD COUNT 12.3 10^3/ul (4.8-10.8)
[2017-12-23 23:21] LABS: INR 1.24; PROTIME 15.8 Sec (11.9-14.9); PT RATIO 1.2
[2017-12-23 23:22] LABS: PARTIAL THROMBOPLASTIN TIME 35.5 Sec (23.0-35.0)
[2017-12-23 23:24] LABS: ALANINE AMINOTRANSFERASE 36 IU/L (13-69); ALBUMIN 3.6 g/dl (3.3-4.9); ALBUMIN/GLOBULIN RATIO 1.02; ALKALINE PHOSPHATASE 78 IU/L (42-121); ANION GAP 15 (5-13); ASPARTATE AMINO TRANSFERASE 41 IU/L (15-46); BILIRUBIN,INDIRECT 0.5 mg/dl (0-1.1); BILIRUBIN,TOTAL 0.5 mg/dl (0.2-1.3); BLOOD UREA NITROGEN 35 mg/dl (7-20); CALCIUM 9.3 mg/dl (8.4-10.2); CARBON DIOXIDE 22 mmol/L (21-31); CHLORIDE 97 mmol/L (97-110); CREATININE 0.94 mg/dl (0.61-1.24); Estimated GFR > 60 mL/min (>60); GLUCOSE 143 mg/dl (70-220); POTASSIUM 4.5 mmol/L (3.5-5.1); SODIUM 134 mmol/L (135-144); TOTAL PROTEIN 7.1 g/dl (6.1-8.1)
[2017-12-23 23:35] LABS: B-TYPE NATRIURETIC PEPTIDE 23600 PG/ML (0-125); TROPONIN-I 0.054 ng/ml (0.000-0.120)
[2017-12-23] MEDS: ASPIRIN 81 MG TAB PO (23:47)
[2017-12-23] MEDS: FUROSEMIDE 40 MG INJ IV (23:47)
[2017-12-23] MEDS: METHYLPREDNISOLONE 125 MG INJ IV (23:47)
[2017-12-24] MEDS: ALBUTEROL 0.5% (NEB) 2.5 MG/0.5 ML AMP INH (00:06)
[2017-12-24 01:05] LABS: AADO2 Arterial 77.7 mmHg (7.0-24.0); Allen Test ACCEPTAB; Arterial Base Excess -1.9 mmol/L (-3.0-3); Arterial Blood Gas Oxygen Sat 97.2 mmHG (95.0-98.0); Arterial COHb 2.1 % (0.0-3.0); Arterial Fraction of Oxyhgb 94.9 % (93.0-99.0); Arterial HCO3 21.5 mmol/L (22.0-26.0); Arterial MetHb 0.3 % (0.0-1.5); Arterial Total Hemglobin 12.6 g/dl (12.0-18.0); Arterial pCO2 32.7 mmhg (35-45); MODE NASAL CANNULA; Site Left Radial
== END 2017-12-24 04:40 | disposition short-term general hospital (02) ==
LOC: E/R 12-24 04:40
DX: J44.1 Chronic obstructive pulmonary disease with (acute) exacerbation (principal); I50.9 Heart failure, unspecified; I10 Essential (primary) hypertension; I25.2 Old myocardial infarction; F17.210 Nicotine dependence, cigarettes, uncomplicated; Z95.1 Presence of aortocoronary bypass graft; Z79.82 Long term (current) use of aspirin
CPT/HCPCS: 36415; 36600; 71045; 80053; 82803; 83880; 84484; 85025; 85610; 85730; 93005; 94644; 94664; 96374; 96375; 99285-25

== ENCOUNTER 2018-03-16 11:35 | Observation (INO) | payer OTHER ==
[2018-03-16 12:15] LABS: ADD MAN DIFF? NO
[2018-03-16 12:19] LABS: BASOPHIL # 0.1 10^3/ul (0.0-0.1); BASOPHILS % 0.6 % (0.0-2.0); EOSINOPHILS # 0.3 10^3/ul (0.0-0.5); EOSINOPHILS % 2.8 % (0.0-7.0); HEMATOCRIT 38.3 % (42.0-52.0); HEMOGLOBIN 11.5 g/dl (14.0-18.0); LYMPHOCYTES % 9.7 % (15.0-51.0); MEAN CORPUSCULAR HEMOGLOBIN 23.3 pg (29.0-33.0); MEAN CORPUSCULAR VOLUME 77.5 fl (82.0-101.0); MEAN PLATELET VOLUME 10.5 fl (7.4-10.4); MONOCYTE # 0.8 10^3/ul (0.3-0.9); MONOCYTES % 8.4 % (0.0-11.0); NEUTROPHIL # 7.7 10^3/ul (1.6-7.5); NEUTROPHILS % 78.1 % (39.0-77.0); PLATELET COUNT 250 10^3/UL (140-415); RED BLOOD COUNT 4.94 10^6/ul (4.70-6.10); RED CELL DISTRIBUTION WIDTH 19.9 % (11.5-14.5)
[2018-03-16 12:19] LABS: WHITE BLOOD COUNT 9.9 10^3/ul (4.8-10.8)
[2018-03-16] MEDS: METHYLPREDNISOLONE 125 MG INJ IV (12:19)
[2018-03-16] MEDS: ALBUTEROL 0.083% (NEB) 2.5 MG/3 ML AMP INH (12:38)
[2018-03-16] MEDS: IPRATROPIUM (NEB) 0.5 MG/2.5 ML AMP INH (12:38)
[2018-03-16 12:43] LABS: ALANINE AMINOTRANSFERASE 12 IU/L (13-69); ALBUMIN 4.3 g/dl (3.3-4.9); ALBUMIN/GLOBULIN RATIO 1.16; ALKALINE PHOSPHATASE 67 IU/L (42-121); ANION GAP 13 (5-13); ASPARTATE AMINO TRANSFERASE 31 IU/L (15-46); BILIRUBIN,INDIRECT 0.3 mg/dl (0-1.1); BILIRUBIN,TOTAL 0.3 mg/dl (0.2-1.3); BLOOD UREA NITROGEN 17 mg/dl (7-20); CALCIUM 8.8 mg/dl (8.4-10.2); CARBON DIOXIDE 22 mmol/L (21-31); CHLORIDE 98 mmol/L (97-110); CREATININE 0.74 mg/dl (0.61-1.24); Estimated GFR > 60 mL/min (>60); GLUCOSE 81 mg/dl (70-220); POTASSIUM 4.5 mmol/L (3.5-5.1); SODIUM 133 mmol/L (135-144)
[2018-03-16 12:54] LABS: B-TYPE NATRIURETIC PEPTIDE 10200 PG/ML (0-125); TROPONIN-I 0.014 ng/ml (0.000-0.120)
[2018-03-16] MEDS: FUROSEMIDE 40 MG INJ IV (13:53)
[2018-03-16] MEDS ORDERED: traMADol 50 MG TAB PO (15:00)
[2018-03-16] MEDS ORDERED: ACETAMINOPHEN 325 MG TAB PO (15:30)
[2018-03-16] MEDS ORDERED: MAGNESIUM HYDROXIDE 30ML CUP PO (15:30)
[2018-03-16] MEDS ORDERED: NITROGLYCERIN (SL) 0.4 MG TAB SL (15:30)
[2018-03-16] MEDS ORDERED: NACL 0.9% 3 ML SYG IV (15:30)
[2018-03-16] MEDS ORDERED: ONDANSETRON 4 MG INJ IV (15:30)
[2018-03-16] MEDS ORDERED: BISACODYL 10 MG SUPP PR (15:30)
[2018-03-16] MEDS ORDERED: DOCUSATE SODIUM 100 MG CAP PO (15:30)
[2018-03-16 16:48] LABS: CREATINE KINASE 57 IU/L (23-200)
[2018-03-16 16:58] LABS: B-TYPE NATRIURETIC PEPTIDE 7950 PG/ML (0-125)
[2018-03-16 17:01] LABS: CK INDEX 5.3; TROPONIN-I < 0.012 ng/ml (0.000-0.120)
[2018-03-16 17:02] LABS: LACTIC ACID 3.3 mmol/L (0.5-2.0)
[2018-03-16 17:07] LABS: CK-MB 3.02 ng/ml (0.0-2.4)
[2018-03-16] MEDS ORDERED: METHYLPREDNISOLONE 125 MG INJ IV (18:00)
[2018-03-16] MEDS: METHYLPREDNISOLONE 40 MG INJ IV ×2 (18:41→23:19)
[2018-03-16] MEDS: BUMETANIDE 1 MG INJ IV (18:41)
[2018-03-16] MEDS: FERROUS SULFATE (EC) 325 MG TAB PO (20:57)
[2018-03-16] MEDS: ATORVASTATIN 40 MG TAB PO (20:58)
[2018-03-16] MEDS: ALBUTEROL/IPRATROPIUM (NEB) 3 ML AMP HHN (21:03)
[2018-03-16] MEDS: GUAIFENESIN/DM 5ML CUP PO (22:35)
[2018-03-16] MEDS: LORAZEPAM 1 MG TAB PO (23:19)
[2018-03-17 01:31] LABS: CREATINE KINASE 81 IU/L (23-200)
[2018-03-17 01:45] LABS: TROPONIN-I 0.014 ng/ml (0.000-0.120)
[2018-03-17 01:48] LABS: CK-MB 4.01 ng/ml (0.0-2.4)
[2018-03-17] MEDS: ALBUTEROL/IPRATROPIUM (NEB) 3 ML AMP HHN ×2 (04:15→08:55)
[2018-03-17] MEDS: GUAIFENESIN/DM 5ML CUP PO ×2 (04:26→13:50)
[2018-03-17] MEDS: LORAZEPAM 1 MG TAB PO (04:26)
[2018-03-17 05:39] LABS: ADD MAN DIFF? NO
[2018-03-17 05:48] LABS: ABNORMAL IP MESSAGE 1; HEMATOCRIT 34.7 % (42.0-52.0); HEMOGLOBIN 10.6 g/dl (14.0-18.0); LYMPHOCYTES # 0.4 10^3/ul (0.8-2.9); LYMPHOCYTES % 4.3 % (15.0-51.0); MEAN CORPUSCULAR HEMOGLOBIN 23.5 pg (29.0-33.0); MEAN CORPUSCULAR HGB CONC 30.5 g/dl (32.0-37.0); MEAN CORPUSCULAR VOLUME 76.8 fl (82.0-101.0); MEAN PLATELET VOLUME 9.3 fl (7.4-10.4); MONOCYTE # 0.2 10^3/ul (0.3-0.9); MONOCYTES % 2.1 % (0.0-11.0); NEUTROPHIL # 7.5 10^3/ul (1.6-7.5); NEUTROPHILS % 92.9 % (39.0-77.0); PLATELET COUNT 247 10^3/UL (140-415); POSITIVE DIFF @See below; RED BLOOD COUNT 4.52 10^6/ul (4.70-6.10); RED CELL DISTRIBUTION WIDTH 19.2 % (11.5-14.5)
[2018-03-17 05:48] LABS: WHITE BLOOD COUNT 8.1 10^3/ul (4.8-10.8)
[2018-03-17] MEDS: METHYLPREDNISOLONE 40 MG INJ IV ×3 (05:52→13:51)
[2018-03-17] MEDS: BUMETANIDE 1 MG INJ IV ×3 (05:52→13:57)
[2018-03-17 06:11] LABS: ALANINE AMINOTRANSFERASE 24 IU/L (13-69); ALBUMIN/GLOBULIN RATIO 1.17; ALKALINE PHOSPHATASE 67 IU/L (42-121); ANION GAP 11 (5-13); ASPARTATE AMINO TRANSFERASE 21 IU/L (15-46); BILIRUBIN,INDIRECT 0.4 mg/dl (0-1.1); BILIRUBIN,TOTAL 0.4 mg/dl (0.2-1.3); BLOOD UREA NITROGEN 30 mg/dl (7-20); CARBON DIOXIDE 29 mmol/L (21-31); CHLORIDE 93 mmol/L (97-110); CHOL/HDL RATIO 3.1 RATIO; CHOLESTEROL 163 mg/dl (100-200); CREATININE 0.92 mg/dl (0.61-1.24); Estimated GFR > 60 mL/min (>60); GLUCOSE 217 mg/dl (70-220); HDL CHOLESTEROL 51 mg/dl (30-78); LDL CHOLESTEROL,CALCULATED 105 mg/dl; MAGNESIUM 1.9 mg/dl (1.7-2.5); POTASSIUM 4.5 mmol/L (3.5-5.1); SODIUM 133 mmol/L (135-144); TOTAL PROTEIN 7.4 g/dl (6.1-8.1); TRIGLYCERIDES 37 mg/dl (0-149)
[2018-03-17 06:14] LABS: DIGOXIN < 0.4 ng/ml (1.0-2.0)
[2018-03-17 06:25] LABS: HEMOGLOBIN A1C 5.9 % (0-5.9)
[2018-03-17] MEDS: FINASTERIDE 5 MG TAB PO (08:18)
[2018-03-17] MEDS: SERTRALINE 50 MG TAB PO (08:18)
[2018-03-17] MEDS: TAMSULOSIN (SR) 0.4 MG CAP PO (08:18)
[2018-03-17] MEDS: FERROUS SULFATE (EC) 325 MG TAB PO (08:18)
[2018-03-17] MEDS: SPIRONOLACTONE 25 MG TAB PO (08:18)
[2018-03-17] MEDS: CLOPIDOGREL 75 MG TAB PO (08:18)
[2018-03-17] MEDS: ASPIRIN (EC) 81 MG TAB PO (08:18)
[2018-03-17] MEDS: ENOXAPARIN 40 MG/0.4 ML SYG SC (08:23)
[2018-03-17] MEDS: FLUTICASONE/VILANTEROL 200-25 INH DEVICE INH (09:00)
[2018-03-17] MEDS: INFLUENZA VIRUS VACCINE 0.5 ML (DISPENSING) IM* (09:00)
[2018-03-17] MEDS: DIGOXIN 0.125 MG TAB PO (12:22)
== END 2018-03-17 14:10 | disposition home or self-care (01) ==
LOC: E/R 11:35 → 6WM 15:08
DX: R06.03 Acute respiratory distress (principal); R09.02 Hypoxemia; I25.5 Ischemic cardiomyopathy; I25.10 Atherosclerotic heart disease of native coronary artery without angina pectoris; Z95.1 Presence of aortocoronary bypass graft; I11.0 Hypertensive heart disease with heart failure; I50.22 Chronic systolic (congestive) heart failure; J44.1 Chronic obstructive pulmonary disease with (acute) exacerbation; E11.9 Type 2 diabetes mellitus without complications; E78.5 Hyperlipidemia, unspecified; N40.0 Benign prostatic hyperplasia without lower urinary tract symptoms; F32.9 Major depressive disorder, single episode, unspecified; D64.9 Anemia, unspecified; F17.200 Nicotine dependence, unspecified, uncomplicated; Z79.82 Long term (current) use of aspirin; Z23 Encounter for immunization
CPT/HCPCS: 36415; 71045; 80053; 80061; 80162; 82550; 82553; 83036; 83605; 83735; 83880; 84484; 85025; 90686; 93005; 94640; 94664; 96374; 96375; 99285-25; G0378